=== PATIENT | female | born 1975 | race Two or more races ===

== ENCOUNTER 2024-06-05 20:01 | Emergency (ER) | payer BC, OTHER ==
[~2024-06-05] VITALS: Ht 157.5 cm; Wt 68.1 kg
[2024-06-05] MEDS: SODIUM CHLORIDE 0.9% 1,000 ML IV ONE (21:17)
[2024-06-05] MEDS: ONDANSETRON HCL 4 MG/2 ML VIAL IV ONE (21:17)
[2024-06-05] MEDS: MORPHINE SULFATE 4 MG/ML SYR/VIAL IV ONE (21:18)
[2024-06-05 21:30] VITALS: PULSE 64; RESP 16; O2SAT 99
[2024-06-05 22:35] VITALS: BP 119/82; PULSE 63; RESP 18; O2SAT 100
== END 2024-06-05 22:50 | disposition home or self-care (01) ==
LOC: EDBD 20:01 → ER 20:01
DX: S93.402A Sprain of unspecified ligament of left ankle, initial encounter (principal); W18.39XA Other fall on same level, initial encounter; Y93.89 Activity, other specified; Y92.89 Other specified places as the place of occurrence of the external cause; Y99.8 Other external cause status
CPT/HCPCS: 73610; 96361; 96374; 96375; 99284; J2270; J2405; J7030